=== PATIENT | male | born 2000 | race Caucasian/White ===

== ENCOUNTER 2018-02-10 11:49 | Inpatient (IN) ==
[2018-02-10] MEDS ORDERED: BUPIVACAINE 0.25% 50 ML VIAL ONE (12:36)
[2018-02-10] MEDS ORDERED: PROPOFOL 200 MG/20 ML VIAL IV ONE (12:37)
[2018-02-10] MEDS ORDERED: PROPOFOL 200 MG/20 ML VIAL IV STA (12:59)
[2018-02-10 13:24] LABS: Basophils % 1.2 % (0.0-0.8); Eosinophils # 0.1 10*3/uL (0.0-0.87); Eosinophils % 3.6 % (0.00-10.9); Hemoglobin 14.1 GM/DL (14.0-18.0); Immature Granulocytes % 0.3 %; Immature Granulocytes Absolute 0.01 #; Lymphocytes # 0.8 10*3/uL (1.4-4.0); Lymphocytes % 25.1 % (21.2-54.2); Mean Corpuscular HGB Conc 34.4 GM/DL (32-36); Mean Corpuscular Hemoglobin 28 PG (27-34); Mean Corpuscular Volume 82.3 FL (87-102); Mean Platelet Volume 9.8 FL (9.6-12.0); Monocytes # 0.4 10*3/uL (0.11-0.8); Monocytes % 10.4 % (1.7-12.7); Neutrophils % 59.4 % (38.7-73.9); Platelet Count 345 T/CUMM (130-400); Red Blood Count 4.98 MC/CUMM (3.8-5.5); Red Cell Distribution Width 12.3 % (9.3-17.3); White Blood Count 3.4 T/CUMM (4-12)
[2018-02-10 13:36] LABS: Albumin 4.3 G/DL (3.4-5.0); Bilirubin,Total 0.6 MG/DL (0.2-1.0); Calcium 9.1 MG/DL (8.5-10.1); Osmolality,Calculated 275.5 MOS/KG (273-304); Potassium 3.5 MMOL/L (3.5-5.1)
[2018-02-10 14:02] LABS: INR 1.1; PT Patient Result 11.3 SECS; Partial Thromboplastin Time 26.9 SECS (0-40)
[2018-02-10] MEDS ORDERED: ONDANSETRON 4 MG/2 ML VIAL IV PRN (14:21)
[2018-02-10] MEDS ORDERED: ACETAMINOPHEN 325 MG TABLET PO PRN (14:21)
[2018-02-10 14:24] LABS: Barbiturates Screen,Urine Negative (Negative); Benzodiazepines Screen,Urine Negative (Negative); Cannabinoid Screen,Urine Negative (Negative); Opiate Screen,Urine Negative (Negative); Phencyclidine Screen,Urine Negative (Negative)
[2018-02-10] MEDS: LACTATED RINGERS 1,000 ML IV SCH ×2 (15:29→23:47)
[2018-02-11] MEDS: LACTATED RINGERS 1,000 ML IV SCH (08:03)
[2018-02-11] MEDS: PANTOPRAZOLE 40 MG TABLET PO SCH (08:41)
[2018-02-11] MEDS ORDERED: MORPHINE 4 MG/1 ML VIAL IV PRN (10:38)
[2018-02-11] MEDS: ENOXAPARIN 40 MG/0.4 ML SYRINGE SUBCUT SCH (15:52)
[2018-02-12] MEDS: PANTOPRAZOLE 40 MG TABLET PO SCH (09:28)
[2018-02-12] MEDS: ENOXAPARIN 40 MG/0.4 ML SYRINGE SUBCUT SCH (15:27)
[2018-02-13] MEDS: PANTOPRAZOLE 40 MG TABLET PO SCH (09:49)
[2018-02-13] MEDS: ENOXAPARIN 40 MG/0.4 ML SYRINGE SUBCUT SCH (14:50)
[2018-02-14] MEDS: PANTOPRAZOLE 40 MG TABLET PO SCH (09:23)
[2018-02-14] MEDS: ENOXAPARIN 40 MG/0.4 ML SYRINGE SUBCUT SCH (14:50)
[2018-02-15] MEDS: PANTOPRAZOLE 40 MG TABLET PO SCH (10:11)
[2018-02-15] MEDS: ENOXAPARIN 40 MG/0.4 ML SYRINGE SUBCUT SCH (14:00)
[2018-02-16 06:04] LABS: Basophils # 0.1 10*3/uL (0.0-0.2); Basophils % 0.9 % (0.0-0.8); Eosinophils # 0.2 10*3/uL (0.0-0.87); Eosinophils % 4.1 % (0.00-10.9); Hematocrit 37.2 VOL% (42.0-52.0); Hemoglobin 12.9 GM/DL (14.0-18.0); Immature Granulocytes % 0.6 %; Immature Granulocytes Absolute 0.03 #; Lymphocytes % 19.3 % (21.2-54.2); Mean Corpuscular HGB Conc 34.7 GM/DL (32-36); Mean Corpuscular Hemoglobin 29 PG (27-34); Mean Corpuscular Volume 82.9 FL (87-102); Mean Platelet Volume 9.5 FL (9.6-12.0); Monocytes # 0.6 10*3/uL (0.11-0.8); Monocytes % 11.7 % (1.7-12.7); Neutrophils # 3.4 10*3/uL (1.4-7.4); Neutrophils % 63.4 % (38.7-73.9); Platelet Count 297 T/CUMM (130-400); Red Blood Count 4.49 MC/CUMM (3.8-5.5); Red Cell Distribution Width 12.2 % (9.3-17.3); White Blood Count 5.4 T/CUMM (4-12)
[2018-02-16 06:30] LABS: Calcium 8.8 MG/DL (8.5-10.1); Osmolality,Calculated 282.1 MOS/KG (273-304); Potassium 3.5 MMOL/L (3.5-5.1)
[2018-02-16] MEDS ORDERED: DOXYCYCLINE HYCLATE IV ONE (08:00)
[2018-02-16] MEDS ORDERED: SODIUM CHLORIDE 0.9% IV ONE (08:00)
[2018-02-16] MEDS: PANTOPRAZOLE 40 MG TABLET PO SCH (08:28)
[2018-02-16] MEDS ORDERED: ceFAZolin 1,000 MG in SYRINGE 1 EACH IV ONE (08:30)
[2018-02-16] MEDS ORDERED: BUPIVACAINE 0.25% 50 ML VIAL ONE (10:13)
[2018-02-16] MEDS ORDERED: LIDOCAINE 1%/EPI INJ 20 ML VIAL ONE (10:13)
[2018-02-16] MEDS ORDERED: HEPARIN/NACL 0.9% 2 UNITS/ML 500 ML IV ONE (10:49)
[2018-02-16] MEDS ORDERED: BUPIVACAINE LIPOSOMAL 20 ML/266 MG VIAL ONE (11:43)
[2018-02-16] MEDS ORDERED: SUGAMMADEX 200 MG/2 ML VIAL IV ONE (12:12)
[2018-02-16] MEDS: HYDROmorphone 2 MG/1 ML VIAL IV PRN ×4 (12:30→12:57)
[2018-02-16] MEDS ORDERED: ONDANSETRON 4 MG/2 ML VIAL ONE ×2 (12:31→12:44)
[2018-02-16] MEDS ORDERED: HYDROmorphone 2 MG/1 ML VIAL ONE (12:31)
[2018-02-16] MEDS ORDERED: SEVOFLURANE 1 UNIT/15 MINUTE INH ONE (12:43)
[2018-02-16] MEDS ORDERED: fentaNYL 100 MCG/2 ML VIAL ONE (12:43)
[2018-02-16] MEDS ORDERED: PROPOFOL 200 MG/20 ML VIAL IV ONE (12:43)
[2018-02-16] MEDS ORDERED: MIDAZOLAM 2 MG/2 ML VIAL ONE (12:43)
[2018-02-16] MEDS ORDERED: PHENYLEPHRINE 10 MG/1 ML VIAL IV ONE (12:44)
[2018-02-16] MEDS ORDERED: ACETAMINOPHEN 1,000 MG/100 ML VIAL IV ONE (12:44)
[2018-02-16] MEDS ORDERED: SODIUM CHLORIDE 0.9% 250 ML IV ONE (12:44)
[2018-02-16] MEDS ORDERED: ROCURONIUM 100 MG/10 ML VIAL IV ONE (12:44)
[2018-02-16] MEDS ORDERED: ONDANSETRON 4 MG/2 ML VIAL IV PRN (12:54)
[2018-02-16] MEDS ORDERED: MEPERIDINE 25 MG/1 ML VIAL ONE (13:08)
[2018-02-16] MEDS ORDERED: MEPERIDINE 25 MG/1 ML VIAL IV PRN (13:10)
[2018-02-16] MEDS: MORPHINE 4 MG/1 ML VIAL IV PRN ×2 (15:57→19:18)
[2018-02-16] MEDS: ENOXAPARIN 40 MG/0.4 ML SYRINGE SUBCUT SCH (16:14)
[2018-02-17] MEDS: MORPHINE 4 MG/1 ML VIAL IV PRN (04:05)
[2018-02-17 06:06] LABS: Basophils % 0.3 % (0.0-0.8); Eosinophils # 0.1 10*3/uL (0.0-0.87); Eosinophils % 0.9 % (0.00-10.9); Hematocrit 42.3 VOL% (42.0-52.0); Hemoglobin 14.7 GM/DL (14.0-18.0); Immature Granulocytes % 0.5 %; Immature Granulocytes Absolute 0.04 #; Lymphocytes # 0.7 10*3/uL (1.4-4.0); Lymphocytes % 8.2 % (21.2-54.2); Mean Corpuscular HGB Conc 34.8 GM/DL (32-36); Mean Corpuscular Hemoglobin 28 PG (27-34); Mean Corpuscular Volume 81.8 FL (87-102); Mean Platelet Volume 9.6 FL (9.6-12.0); Monocytes % 10.8 % (1.7-12.7); Neutrophils % 79.3 % (38.7-73.9); Platelet Count 349 T/CUMM (130-400); Red Blood Count 5.17 MC/CUMM (3.8-5.5); Red Cell Distribution Width 12.2 % (9.3-17.3); White Blood Count 8.8 T/CUMM (4-12)
[2018-02-17 06:35] LABS: Osmolality,Calculated 271.8 MOS/KG (273-304); Potassium 4.1 MMOL/L (3.5-5.1)
[2018-02-17] MEDS: PANTOPRAZOLE 40 MG TABLET PO SCH (08:11)
[2018-02-17] MEDS ORDERED: PHENOL 1.4% THROAT SPRAY 177 ML BOTTLE PO PRN (11:24)
[2018-02-17] MEDS: ENOXAPARIN 40 MG/0.4 ML SYRINGE SUBCUT SCH (15:18)
[2018-02-18] MEDS: PANTOPRAZOLE 40 MG TABLET PO SCH (09:12)
[2018-02-18] MEDS: ENOXAPARIN 40 MG/0.4 ML SYRINGE SUBCUT SCH (14:17)
[2018-02-19] MEDS: PANTOPRAZOLE 40 MG TABLET PO SCH (09:10)
[2018-02-19] MEDS: ENOXAPARIN 40 MG/0.4 ML SYRINGE SUBCUT SCH (14:37)
[2018-02-19 16:16] VITALS: BP 131/72
== END 2018-02-19 16:20 | disposition home or self-care (01) | DRG 165 ==
LOC: N.ED 11:49 → N.EDINP 13:16 → N.3E 14:00
PROVIDERS: ADMIT Surgery; ATTEND Surgery